=== PATIENT | female | born 1985 | race Caucasian/White ===

== ENCOUNTER 2021-06-03 08:39 | Outpatient (RCR) | payer MEDICAID, SELFPAY ==
--- NOTE | ~2021-06-03 | XR_ITS ---
EXAMINATION: XR PELVIS CLINICAL INFORMATION: Nonhealing wound, spina bifida. COMPARISON: None. TECHNIQUE: AP view of the pelvis. FINDINGS: There are 2 Peace rods extending in lumbar and upper sacral spine for spinal bifid occulta deformity. Visualized hip joints are intact. There is diffuse thinning of the superior-inferior pubic and ischial bones. No soft tissue abnormality seen. XR/XR pelvis 1-2V IMPRESSION: Large spina bifida abnormality extending to the sacral spine. The lumbosacral spine has been stabilized with 2 short Peace rods.
[2021-06-03 10:33] LABS: MANUAL DIFF FLAG NO
[2021-06-03 10:58] LABS: Basophils Percent Auto 0.4 % (0-2); Eosinophils Percent Auto 0.6 % (0-4); Hematocrit 37.5 % (37.0-47.0); Imm Gran Abs Auto 0.02 X10*3/uL (0.00-0.03); Imm Gran Pct Auto 0.3 % (0.0-0.4); Lymphocytes Absolute Auto 2.6 X10*3/uL (1.2-4.9); Lymphocytes Percent Auto 37.8 % (20-40); Mean Corpuscular Hemoglobin 28.8 pg (27.0-33.0); Mean Corpuscular Volume 89.9 fL (80.0-98.0); Mean Platelet Volume 9.9 fL (9.4-12.3); Monocytes Absolute Auto 0.3 X10*3/uL (0.1-1.2); Monocytes Percent Auto 4.7 % (2-11); Neutrophils Absolute Auto 3.9 x10*3/uL (2.0-8.3); Neutrophils Percent Auto 56.2 % (45-73); Platelet Count 395 X10*3/uL (160-400); Red Blood Count 4.17 X10*6/uL (4.20-5.50); Red Cell Distribution Width 12.9 % (11.0-16.0)
[2021-06-03 11:25] LABS: Anion Gap 11 (12-20); Blood Urea Nitrogen 8 mg/dL (9-16); C Reactive Protein 0.15 mg/dL (< or = 0.50); Calcium 9.6 mg/dL (8.4-10.2); Carbon Dioxide 26 mmol/L (22-29); Chloride 108 mmol/L (96-108); Estimated Glomerular Filt Rate > 60; Glucose Random 83 mg/dL (60-115); Potassium 4.6 mmol/L (3.3-5.1); Sodium 140 mmol/L (135-145)
[2021-06-03 11:44] LABS: Erythrocyte Sedimentation Rate 8 MM/HR (0-20)
== END 2021-09-06 14:25 | disposition home or self-care (01) ==
LOC: HO.WCC 08:39
PROVIDERS: Visit Provider Physician Assistant
DX: L89.313 Pressure ulcer of right buttock, stage 3 (principal); Q76.0 Spina bifida occulta; Z96.0 Presence of urogenital implants
CPT/HCPCS: 11042; 15271; 36415; 72170; 80048; 84134; 85025; 85652; 86140; 99212; Q4187

== ENCOUNTER 2024-11-01 13:50 | Outpatient (RCR) | payer MEDICAID, SELFPAY | END 2024-11-01 16:37 | disposition home or self-care (01) | LOC: HO.WCC 13:50 | PROVIDERS: PCP Student in an Organized Health Care Education/Training Program; Visit Provider Surgery | DX: Z09 Encounter for follow-up examination after completed treatment for conditions other than malignant neoplasm (principal); Z87.2 Personal history of diseases of the skin and subcutaneous tissue | CPT/HCPCS: 99203 ==